=== PATIENT | male | born 1980 | race Caucasian/White ===

== ENCOUNTER 2019-09-26 17:35 | Emergency (ER) | payer OTHER ==
[~2019-09-26] VITALS: Ht 177.8 cm; Wt 81.6 kg
[2019-09-26] MEDS ORDERED: [UNRECOGNIZED DRUG - CODE] (17:51)
[2019-09-26] MEDS ORDERED: INTESTINEX680 M1 (17:52)
== END 2019-09-26 21:25 | disposition home or self-care (01) ==
LOC: ER 17:35
DX: L02.512 Cutaneous abscess of left hand (principal)